=== PATIENT | female | born 1975 | race Two or more races ===

== ENCOUNTER 2025-04-29 18:15 | Inpatient (IN) | payer MEDICARE, SELFPAY ==
[2025-04-29 19:03] VITALS: BP 134/80; PULSE 98; TEMP 36.6; O2SAT 99
--- NOTE | 2025-04-29 19:18 | PC.NURSE ---
49 y/o female arrived to at 1845 on a CV from [facility] in [facility] for acute psychosis. Per N2N pt has dx schizophrenia and reportedly stopped taking her medications several months ago. Per report, pt was not attending to ADLs, remained in the same clothing for the past ten days, wandering the streets, exhibiting paranoia, and reportedly threw away much of her belongings. While in their ED pt became agitated and was physically, mechanically, and chemically restrained after smearing feces on the bathroom wall as well as on her sitter?s face. After receiving Ketamine 290mg IM and Haldol 5mg IM, pt required supplemental oxygen for a short period of time. Before transfer to [facility] pt was medicated with Valium 10mg PO and Haldol 10mg PO d/t increasing agitation. Per report pt has a dx of diabetes, however Metformin was last filled in 06/2024. Pt reportedly was prescribed Abilify, however stopped taking several months ago. Pt arrived to unit via?stretcher. Pt reported a strong need to urinate after the long commute. Pt was assisted to room with two nurses d/t pt feeling unsteady. Pt was polite but guarded. Limited participation with skin check, however pt did change into new hospital clothing. Bruising noted to bilateral arms. Yellow socks provided d/t pt feeling unsteady. Pt refused full skin check and covering provider Amelia Rodriguez NP notified. Pt cooperative with VS, however declined to get weighed. Provider then met with pt at beside and signed CV. Awaiting admit orders. Admission to be completed by oncoming RN.
[2025-04-29 20:00] VITALS: BP 126/82; PULSE 76; RESP 16; TEMP 36.6; O2SAT 98
[2025-04-29 20:04] VITALS: BMI 29.0
[2025-04-29 21:38] LABS: Glucose, Whole Blood 114 mg/dL (60-115)
--- NOTE | 2025-04-29 23:25 | P.HPPS_ITS ---
HPI Date of Service: 04/29/25 Chief Complaint: Schizophrenia Sources of Information: patient interviewed, chart reviewed and crisis/core team assessment reviewed HPI Subjective Notes: Clarke Warning and Conditional Voluntary Healthcare Proxy: No Guardianship: No Medical Problems Affecting Mental Status: No Narrative: Patient is a 49 years old female past medical history of significant of psychiatric behavioral disorder-schizophrenic him in 2 [facility] ED with her sister for evaluation. Sister came in from [place] to visit her, feeling patient is not safe for herself, reports has not taking medication over the past couple of months and has been having acute psychosis. Patient was wandering on the street, throwing her belongings away, not showering, not changing clothes for 10 days. She was given IM Haldol 5, diazepam 2 mg ketamine 290 mg at 05:30 for increased agitation, smears feces on the sitter's face. Met with patient at 18:50 in assigned room 515. CC I do not feel okay. Pain lower my belly. I do think I have to go to the ED . Patient has poor insight what reason brought her here. She does remember her sister coming to visit her from [place]. Remember she had history of schizophrenic, diabetes and thyroid disease. Reported that she has not needed to take medication after meeting with her doctor and doctor told her that she does not need to take more medications. She is not sure how long she stopped taking medication. Denies SI/SIB/HI/AVH. Denies suicidal history, denies suicide attempts history repeatedly saying I do not do it. I love my life . Feeling tired and okay and a little sad now, stated her mood is stable . Past Psychiatric History: History of 2 inpatient level of care admissions. Denies PHP or detox history. Reports she has psychiatrist and therapist. Reports that she saw the therapist in March, and saw the psychiatrist in December of this year Medical Evaluation Reviewed: Hospitalist Juan Pending [facility] Narrative: History of diabetes type 2. History of thyroid disease Narrative: No history of surgery Family History: She has 1 brother and 2 sisters. Denies family mental health or substance use issues Social History: She is single, no children, have her own apartment, able to return. He has a supportive family. She moved to [place] from [place] in 1992. Sh e stays in [place] is seen April of 2005-2011. Some college level. Received SSI Substance History: Denies Trauma History: Denies Diagnostics Vital Signs (24Hr): Vital Signs - 24 hr 04/29/25 19:03 04/29/25 20:00 Temperature 97.9 F 97.8 F Pulse Rate 98 76 Respiratory Rate 16 Blood Pressure 134/80 126/82 Pulse Oximetry 99 98 Oxygen Delivery Method Room Air Room Air BMI result Body Mass Index 29.0 Labs Labs: Laboratory Results - last 48 hr 04/29/25 21:33 POC Glucose 114 Meds/Allergies Meds Home Medications ?Medication ?Instructions ?Recorded ?Confirmed ?Type aripiprazole 5 mg tablet 5 mg PO BID 04/29/25 5 History dapagliflozin propanediol 10 mg 10 mg PO DAILY 5 04/29/25 History tablet (Farxiga) Allergies Allergies Allergy/AdvReac Type Severity Reaction Status Date / Time Penicillins Allergy Unknown Verified 04/29/25 18:57 Mental Status Exam Mental Status Exam Narrative: Patient is alert and oriented; behavior is cooperative, friendly with mild to mild to moderate anxiety; patient is not in distress; dressed in hospital attire with kempt hair and adequate hygiene; mood is described as stable and affect incongruent; eye contact appropriate; Speech is normal rate, volume and prosody and not pressured; no psychomotor agitation/retardation present; thought process is organized and goal directed; Thought content is WNL, pertinent to relevant topics and without any delusional content, paranoid ideation or grandiosity; denies any SI/SIB/HI. Denies AH and there is no evidence of perceptual disturbance. Patient's insight and judgment impaired/poor. Do not make any delusional as the paranoid statements, however reports that she feels someone got into her apartment as something look different in the apartment Assessment & Plan Assessment & Plan (1) Schizophrenic disorder: Status: Acute Code(s): F20.9 - Schizophrenia, unspecified (2) Thyroid disease: Status: Acute Code(s): E07.9 - Disorder of thyroid, unspecified (3) Diabetes: Status: Acute Code(s): E11.9 - Type 2 diabetes mellitus without complications Plan HPI: Patient is a 49 years old female past medical history of significant of psychiatric behavioral disorder-schizophrenic referred from [facility] ED. Sister came in from [place] to visit her, feeling patient is not safe for herself, reports has not taking medication over the past couple of months and has been having acute psychosis. Patient was wandering on the street, throwing her belongings away, not showering, not changing clothes for 10 days. She was given IM Haldol 5, diazepam 2 mg ketamine 290 mg at 05:30 for increased agitation, smears feces on the sitter's face CC I do not feel okay. Pain lower my belly. I do think I have to go to the ED . Patient has poor insight what reason brought her here. She does remember her sister coming to visit her from [place]. Remember she had history of schizophrenic, diabetes and thyroid disease. Reported that she has not needed to take medication after meeting with her doctor and doctor told her that she does not need to take more medications she told me I do not have mental health . She is not sure how long she stopped taking medication. Denies SI/SIB/HI/AVH. Denies suicidal history, denies suicide attempts history repeatedly saying I do not do it. I love my life . Feeling tired and okay and a little sad now, stated her mood is stable . Little to no insight of how she got into the hospital and why she needs to be in the hospital. Judgment and insight are impaired. Formulation/clinical reasoning: Stopped taking medication included her diabetes and thyroid medication, become psychotic, agitated, bizarre behavior. Given restrain medication in the ED, appeared to be calm on admission. Continued to be poor insight of her mental illnesses. History of diabetes, hypothyroidism, schizophrenic. Given the above information, patient will be benefit in restrictive environment for her own safety, therapeutic environment, provided groups for coping skills, medication management, and refer patient to outpatient psychiatric services for aftercare. Hospital course: 04/29/25: Restart on Abilify 10 mg daily in the morning. Levothyroxine 100 mg daily in the morning At Zyprexa 5 mg twice a day as needed for agitation/psychosis Hold on Faxiga: Not sure how her for sugar runs lately. Resume if needed. Other medication per protocol. order drugs screen: Not done in the ED. she was negative for Hcg Plan Patient on 15 minute checks for safety. Admitted to . CV. Work with treatment team to do collateral and follow-up appointments with psychiatry services for aftercare. Sister called when the patient just arrived to the unit. Treatment team to reach out to sister to update update her if possible Contact the hospitalist regarding hospitalist consultation on admission: Pending. Patient educated on: diagnosis, medication risk/benefits and therapeutic strategies Informed Consent: further education needed Reason for continued inpatient stay Substantial Risk for: med/psych decompensation Statement Statement: I have reviewed the history and physical and performed a pertinent examination on my patient. No changes have occurred unless specified. If the History and Physical was not performed prior to admission, the Hospitalist's service will be consulted for completing the admission physical. Time Spent With Patient Time: Total time managing care of this patient today ____ minutes.
--- NOTE | 2025-04-30 02:09 | PC.ADMIT ---
Patient is a 49 y/o female who arrived to at 1845 on a CV from [facility] in [facility] for acute psychosis. Per N2N pt has dx schizophrenia and reportedly stopped taking her medications several months ago. Per report, pt was not attending to ADLs, remained in the same clothing for the past ten days, wandering the streets, exhibiting paranoia, and reportedly threw away much of her belongings. While in their ED pt became agitated and was physically, mechanically, and chemically restrained after smearing feces on the bathroom wall as well as on her sitter?s face. She received Ketamine 290mg IM and Haldol 5mg IM, pt required supplemental oxygen for a short period of time. Before transfer to [facility] pt was medicated with Valium 10mg PO and Haldol 10mg PO d/t increasing agitation. Per report pt has a dx of diabetes, however Metformin was last filled in 06/2024. Pt reportedly was prescribed Abilify, however stopped taking several months ago. Pt arrived to unit via?stretcher. Pt reported a strong need to urinate after the long commute. Pt was assisted to room with two nurses d/t pt feeling unsteady. Pt was polite but guarded. Limited participation with skin check, however pt did change into new hospital clothing. Bruising noted to bilateral arms. Yellow socks provided d/t pt feeling unsteady. Pt refused full skin check and covering provider Amelia Rodriguez NP notified. Pt cooperative with VS. Provider then met with pt at beside and signed CV. Awaiting admit orders. Patient was oriented to the unit, placed on safety checks.
[2025-04-30 08:00] VITALS: BP 105/68; PULSE 57; TEMP 35.7; O2SAT 96
--- NOTE | 2025-04-30 08:19 | HO.PM.IMCN ---
History of Present Illness Data of Consult Service Date: 04/30/25 Primary Care Provider: DO YELITZA Jj Reason for consult: Medical management 49-year-old female with past medical history of hypothyroidism, diabetes, psychiatric behavior disorder brought into the [facility] in [place] emergency department with concerns for not taking her medications and active psychosis. On exam she is alert and pleasant she has no physical complaints. She reports she has not taken any medications for diabetes in a couple of years. She was also not taking her levothyroxine. Her A1c is 5.6, discussed diet and exercise with her as well as following up with her primary care. She denies any shortness of breath, chest pain, dizziness lightheadedness or any other concerning symptoms. She is resting in bed, quiet and cooperative. She reports that she feels better. Review of Systems Review of Systems: Denies any shortness of breath, chest pain, dizziness, lightheadedness, abdominal pain or discomfort, nausea vomiting or diarrhea PMFSH Social History Household Members: None Housing: Apartment Do you presently have visiting nurse or other home services: No Patient Tobacco Use Status: Never used Tobacco Smoked in Last 30 Days: No e-Cigarette/Vaping Use: Never Used Patient Interested in Nicotine Replacement: No Patient Given Instructions on How to Stop Smoking: No Second Hand Smoke Exposure: No Currently Displaying Signs/Symptoms of Drug Intoxication Withdrawal: No Have you been hit, kicked, punched, or otherwise hurt by someone within the past year? If so, by whom?: No Do you feel safe in your current relationship?: No Current Relationship Is there a partner from a previous relationship who is making you feel unsafe now?: No Are you made to feel afraid or neglected: No Yazidi Healthcare Practices: Patient is a Jehovah witness affiliation Advance Directives: No Advance Directives Information Provided: No Do you have thoughts of harming others: None Do you have a plan to hurt others: No Plan Recently lost weight without trying: No How much weight loss: Not applicable Eating poorly because of decreased appetite: No Nutrition screen score: 0 Nutrition Risks: No Nutritional Risk Patient : No : No Poor oral hygiene: No Meds Allergies Allergy/AdvReac Type Severity Reaction Status Date / Time Penicillins Allergy Unknown Verified 04/29/25 18:57 Active Medications: Current Medications Acetaminophen (Acetaminophen 325 Mg Tablet) 650 mg PO Q6H PRN PRN Reason: Headache/Pain, Scale 1-10 Al Hydroxide/Mg Hydroxide (Magnesium Hydrox/Alum Hydrox 30 Ml Oral.Susp) 30 ml PO Q6H PRN PRN Reason: Heartburn/Nausea Aripiprazole (Aripiprazole 10 Mg Tablet) 10 mg PO DAILY [facility] Haloperidol (Haloperidol 5 Mg Tablet) 5 mg PO Q4H PRN PRN Reason: agitation/psychosis Hydroxyzine HCl (Hydroxyzine Hcl 25 Mg Tablet) 25 mg PO Q6H PRN PRN Reason: mild anxiety Insulin Human Lispro (Insulin Lispro 100 Unit/Ml 3 Ml Vial) 0 unit SUBCUT QIDACHS [facility]; Protocol Last Admin: 04/29/25 21:44 Dose: Not Given Levothyroxine Sodium (Levothyroxine Sodium 100 Mcg Tablet) 100 mcg PO DAILY@0600 [facility] Last Admin: 04/30/25 06:34 Dose: Not Given Magnesium Hydroxide (Milk Of Magnesia 30 Ml Oral.Susp) 30 ml PO DAILY PRN PRN Reason: Constipation Trazodone HCl (Trazodone Hcl 50 Mg Tablet) 50 mg PO BEDTIME MRX1 PRN PRN Reason: Insomnia Home Medications ?Medication ?Instructions ?Recorded ?Confirmed ?Last Taken ?Type aripiprazole 5 mg tablet 5 mg PO BID 04/29/25 04/29/25 Unknown History dapagliflozin propanediol 10 mg 10 mg PO DAILY 04/29/25 04/29/25 Unknown History tablet (Farxiga) Physical Exam Vital Signs and Narrative: Vital Signs: Last Vital Signs Temp 97.8 F 04/29/25 20:00 Pulse 76 04/29/25 20:00 Resp 16 04/29/25 20:00 BP 126/82 04/29/25 20:00 Pulse Ox 98 04/29/25 20:00 O2 Del Method Room Air 04/29/25 20:00 BMI result Body Mass Index 29.0 Alert and oriented X4, able to give good history. Pleasant and cooperative Neuro: CN II-X11 intact, no deficits, visual acuity intact EYES: PERRLA, EOM intact ENT: Hearing intact, lips moist Cardiac: S1 S2 RRR, No ectopy Pulmonary: Lungs clear to auscultation, No increased WOB. Abdominal: BS active in all 4 quadrants, no guarding or tenderness MSK: Strength 5/5 upper and lower extremities : Deferred Extremities: No edema in lower extremities Psych: mood stable, Quiet and cooperative. Skin: Warm and dry, Intact Results Labs 04/30/25 08:12 Labs: Laboratory Results - last 24 hr 04/29/25 21:33 POC Glucose 114 Assessment and Plan (1) Hypothyroidism: Status: Acute Plan Schizophrenia with psychosis Treatment per psychiatric team Hypothyroidism Continue 100 mcg of levothyroxine TSH is noted to be 66.2. Suspect that patient has been not taking her medications We will continue 100 mcg of levothyroxine, recheck level in 3-3 weeks Will need outpatient follow up if patient is discharged prior to this timeframe. Type 2 diabetes Appears well controlled Discussed diet and exercise with patient. Thank you for allowing me to participate in the care of this patient. Signing off at this time. Please reconsult of any acute concerns or issues arise
[2025-04-30 09:01] LABS: Glucose, Whole Blood 84 mg/dL (60-115)
[2025-04-30 09:14] LABS: Hemoglobin A1C 125.3678 umol/L; Total Hemoglobin (HGBA1C) 3338.7650 umol/L
[2025-04-30 09:28] LABS: Alanine Aminotransferase 74 U/L (0-31); Albumin Level 4.5 g/dL (3.5-5.0); Alkaline Phosphatase 79 U/L (39-117); Anion Gap 13 (12-20); Aspartate Amino Transferase 56 U/L (5-31); Blood Urea Nitrogen 12 mg/dL (9-16); Calcium 9.1 mg/dL (8.4-10.2); Carbon Dioxide 30 mmol/L (22-29); Chloride 105 mmol/L (96-108); Cholesterol 220 mg/dL (<200); Creatinine Clr Calc Pharmacy 58.7; Estimated Glomerular Filt Rate 54; HDL Cholesterol 58 mg/dL (>40); Potassium 3.5 mmol/L (3.3-5.1); Sodium 144 mmol/L (135-145); Total Protein 7.4 g/dL (6.5-8.0); Triglycerides 92 mg/dL (<150)
[2025-04-30 09:45] LABS: Free T4 (Free Thyroxine) < 0.42 ng/dL (0.71-1.85); Thyroid Stimulating Hormone 68.22 uIU/mL (0.32-4.0)
--- NOTE | 2025-04-30 10:28 | P.PNPSI_ITS ---
Subjective Subjective Date of Service: 04/30/25 Reason For Visit: Schizophrenia Subjective Notes: Conditional Voluntary Healthcare Proxy: No Guardianship: No Medical Problems Affecting Mental Status: No Interim History: Met with pt and Connor GONZALEZ. Pt is pleasant, forthcoming, well engaged. She reports she was at her [place], called her friend from the confucianism to give her a ride. Two friends came, they stopped at [facility], got some supplies, went to friends home and I felt wierd . As a result she left her friends home, started walking, friends followed her-they told her she seemed off, not like the same person. She reports she thought something happened in [facility] that she did not recognize or understand, became more frightened and began to run from her friends. Police were called and pt went to [facility]. Pt denies SI,HI, AH,VH. She lives alone she reports, completed high school and to [place] she believes at age 10. She has SSI and does not work. She reports she meets with Virginie Holm for therapy and Liz Elizabeth for medications, reports pre-diabetes which she reports is resolved and hypothyroidism. She reports Abilify and Levothyroxine help. She reports in pt history, one or two days , denies family history of illness and has phobic sx of fire and rats.. She enjoys music, friends, going out to eat, going to the beach, nature, reading, walking. She is willing to continue her med regime and reports feeling safe on the unit. Medication Compliance: Intermittent (ref levothyroxine- tsh 68.22 and ft4 0.42) Side effects from medications: No Attending Groups: No Review of Systems Acute medical concerns: Yes TSH 68.22 Medical Review of Systems: unchanged Review of Systems Review of Systems Pt denies Mental Status Exam Mental Status Exam Patient Appearance: Appropriate Patient Orientation: Person, Place, Time and Situation Level of Consciousness: Alert Patient Behavior: Appropriate, Talkative, Cooperative, Distractible and Good Eye Contact Mood Description: Cheerful and Apprehensive Affect Description: Cheerful and Apprehensive Patient Cognition Impaired: No Ability to Follow Directions: Good Speech Pattern: Spontaneous Speech Memory Description: Remote Impaired Hallucinations: None (denies) Delusions: Paranoid Ideation Perceptual Disturbances: Depersonalization and Derealization Thought Process: Distracted Thought Content: positive for Circumstantial, positive for Tangential and positive for Suicidal Ideation (denies) Judgement: Fair Diagnostics Vital Signs (24Hr): Vital Signs - 24 hr 04/29/25 19:03 04/29/25 20:00 04/30/25 08:00 Temperature 97.9 F 97.8 F 96.3 F L Pulse Rate 98 76 57 Respiratory Rate 16 Blood Pressure 134/80 126/82 105/68 Pulse Oximetry 99 98 96 Oxygen Delivery Method Room Air Room Air Room Air BMI result Body Mass Index 29.0 Labs 04/30/25 08:12 Labs: Laboratory Results - last 48 hr 04/29/25 04/30/25 04/30/25 21:33 08:12 08:54 Sodium 144 Potassium 3.5 Chloride 105 Carbon Dioxide 30 H Anion Gap 13 BUN 12 Creatinine 1.09 Estim Creat Clear Calc 58.7 Estimated GFR 54 POC Glucose 114 84 Random Glucose 108 Estimat Average Glucose 114 Hemoglobin A1c % 5.6 Calcium 9.1 Total Bilirubin 1.0 AST 56 H ALT 74 H Alkaline Phosphatase 79 Total Protein 7.4 Albumin 4.5 Triglycerides 92 Cholesterol 220 H LDL Cholesterol, Calc 144 H HDL Cholesterol 58 TSH 68.22 H Free T4 < 0.42 L Medications Medications Current Medications Acetaminophen (Acetaminophen 325 Mg Tablet) 650 mg PO Q6H PRN PRN Reason: Headache/Pain, Scale 1-10 Al Hydroxide/Mg Hydroxide (Magnesium Hydrox/Alum Hydrox 30 Ml Oral.Susp) 30 ml PO Q6H PRN PRN Reason: Heartburn/Nausea Aripiprazole (Aripiprazole 10 Mg Tablet) 10 mg PO DAILY [facility] Last Admin: 04/30/25 10:02 Dose: 10 mg Haloperidol (Haloperidol 5 Mg Tablet) 5 mg PO Q4H PRN PRN Reason: agitation/psychosis Hydroxyzine HCl (Hydroxyzine Hcl 25 Mg Tablet) 25 mg PO Q6H PRN PRN Reason: mild anxiety Insulin Human Lispro (Insulin Lispro 100 Unit/Ml 3 Ml Vial) 0 unit SUBCUT QIDACHS [facility]; Protocol Last Admin: 04/30/25 08:59 Dose: Not Given Levothyroxine Sodium (Levothyroxine Sodium 100 Mcg Tablet) 100 mcg PO DAILY@0600 [facility] Last Admin: 04/30/25 06:34 Dose: Not Given Magnesium Hydroxide (Milk Of Magnesia 30 Ml Oral.Susp) 30 ml PO DAILY PRN PRN Reason: Constipation Trazodone HCl (Trazodone Hcl 50 Mg Tablet) 50 mg PO BEDTIME MRX1 PRN PRN Reason: Insomnia Allergies Allergies Allergy/AdvReac Type Severity Reaction Status Date / Time Penicillins Allergy Unknown Verified 04/29/25 18:57 Assessment & Plan Assessment & Plan (1) Schizophrenic disorder: Status: Acute Code(s): F20.9 - Schizophrenia, unspecified (2) Thyroid disease: Status: Acute Code(s): E07.9 - Disorder of thyroid, unspecified (3) Diabetes: Status: Acute Code(s): E11.9 - Type 2 diabetes mellitus without complications Plan Schizophrenia. 04/30- Continue current tx Collateral Contacts Probable need to increase Abilify once established. Hypothyroidism Continue 100 mcg of levothyroxine TSH is noted to be 66.2. Suspect that patient has been not taking her medications We will continue 100 mcg of levothyroxine, recheck level in 3-3 weeks Will need outpatient follow up if patient is discharged prior to this timeframne. Type 2 diabetes Appears well controlled on current regime, A1c 5.6 continue home meds Januvia and Farxiga. Reason for continued inpatient stay Substantial Risk for: rapid decompensation and med/psych decompensation Time Spent With Patient Time: Total time managing care of this patient today ____ minutes.
[2025-04-30 20:00] VITALS: BP 133/72; PULSE 60; TEMP 36.1; O2SAT 98
[2025-04-30 20:25] LABS: Glucose, Whole Blood 111 mg/dL (60-115)
[2025-05-01 08:00] VITALS: BP 123/76; PULSE 53; TEMP 36.3; O2SAT 97
--- NOTE | 2025-05-01 17:34 | P.PNPSI_ITS ---
Subjective Subjective Date of Service: 05/01/25 Reason For Visit: Schizophrenia Interim History: Patient was pleasant on approach. She reports she wasn't aware the Abilify dose ordered was 10 mg and says she would only take 5 mg. She reports she and her psychiatric provider were lowering the dose gradually and discontinued. She feels the Abilify helped stabilize her mood. She has not been exhibiting disorganized behavior at the hospital. Review of Systems Review of Systems Pt denies Mental Status Exam Mental Status Exam Narrative: Patient is alert and oriented; behavior is cooperative, friendly with mild to mild to moderate anxiety; patient is not in distress; dressed in hospital attire with kempt hair and adequate hygiene; mood is described as stable and affect incongruent; eye contact appropriate; Speech is normal rate, volume and prosody and not pressured; no psychomotor agitation/retardation present; thought process is organized and goal directed; Thought content is WNL, pertinent to relevant topics and without any delusional content, paranoid ideation or grandiosity; denies any SI/SIB/HI. Denies AH and there is no evidence of perceptual disturbance. Patient's insight and judgment impaired/poor. Do not make any delusional as the paranoid statements, however reports that she feels someone got into her apartment as something look different in the apartment Patient Appearance: Appropriate Patient Orientation: Person, Place, Time and Situation Level of Consciousness: Alert Patient Behavior: Appropriate, Talkative, Cooperative, Distractible and Good Eye Contact Mood Description: Cheerful and Apprehensive Affect Description: Cheerful and Apprehensive Patient Cognition Impaired: No Ability to Follow Directions: Good Speech Pattern: Spontaneous Speech Memory Description: Remote Impaired Diagnostics Vital Signs (24Hr): Vital Signs - 24 hr 04/30/25 20:00 05/01/25 08:00 Temperature 96.9 F 97.4 F Pulse Rate 60 53 Blood Pressure 133/72 123/76 Pulse Oximetry 98 97 Oxygen Delivery Method Room Air Room Air BMI result Body Mass Index 29.0 Labs 04/30/25 08:12 Labs: Laboratory Results - last 48 hr 04/29/25 04/30/25 04/30/25 21:33 08:12 08:54 Sodium 144 Potassium 3.5 Chloride 105 Carbon Dioxide 30 H Anion Gap 13 BUN 12 Creatinine 1.09 Estim Creat Clear Calc 58.7 Estimated GFR 54 POC Glucose 114 84 Random Glucose 108 Estimat Average Glucose 114 Hemoglobin A1c % 5.6 Calcium 9.1 Total Bilirubin 1.0 AST 56 H ALT 74 H Alkaline Phosphatase 79 Total Protein 7.4 Albumin 4.5 Triglycerides 92 Cholesterol 220 H LDL Cholesterol, Calc 144 H HDL Cholesterol 58 TSH 68.22 H Free T4 < 0.42 L 04/30/25 20:18 Sodium Potassium Chloride Carbon Dioxide Anion Gap BUN Creatinine Estim Creat Clear Calc Estimated GFR POC Glucose 111 Random Glucose Estimat Average Glucose Hemoglobin A1c % Calcium Total Bilirubin AST ALT Alkaline Phosphatase Total Protein Albumin Triglycerides Cholesterol LDL Cholesterol, Calc HDL Cholesterol TSH Free T4 Medications Medications Current Medications Acetaminophen (Acetaminophen 325 Mg Tablet) 650 mg PO Q6H PRN PRN Reason: Headache/Pain, Scale 1-10 Al Hydroxide/Mg Hydroxide (Magnesium Hydrox/Alum Hydrox 30 Ml Oral.Susp) 30 ml PO Q6H PRN PRN Reason: Heartburn/Nausea Aripiprazole (Aripiprazole 5 Mg Tablet) 5 mg PO DAILY [facility] Haloperidol (Haloperidol 5 Mg Tablet) 5 mg PO Q4H PRN PRN Reason: agitation/psychosis Hydroxyzine HCl (Hydroxyzine Hcl 25 Mg Tablet) 25 mg PO Q6H PRN PRN Reason: mild anxiety Insulin Human Lispro (Insulin Lispro 100 Unit/Ml 3 Ml Vial) 0 unit SUBCUT [facility]IDACHS [facility]; Protocol Last Admin: 05/01/25 16:33 Dose: Not Given Levothyroxine Sodium (Levothyroxine Sodium 100 Mcg Tablet) 100 mcg PO DAILY@0600 [facility] Last Admin: 05/01/25 06:57 Dose: 100 mcg Magnesium Hydroxide (Milk Of Magnesia 30 Ml Oral.Susp) 30 ml PO DAILY PRN PRN Reason: Constipation Trazodone HCl (Trazodone Hcl 50 Mg Tablet) 50 mg PO BEDTIME MRX1 PRN PRN Reason: Insomnia Allergies Allergies Allergy/AdvReac Type Severity Reaction Status Date / Time Penicillins Allergy Unknown Verified 04/29/25 18:57 Assessment & Plan Assessment & Plan (1) Schizophrenic disorder: Status: Acute Code(s): F20.9 - Schizophrenia, unspecified (2) Thyroid disease: Status: Acute Code(s): E07.9 - Disorder of thyroid, unspecified (3) Diabetes: Status: Acute Code(s): E11.9 - Type 2 diabetes mellitus without complications Plan Schizophrenia. 04/30- Continue current tx Collateral Contacts Probable need to increase Abilify once established. 05/01: Decrease Abilify to 5 mg. Hypothyroidism Continue 100 mcg of levothyroxine TSH is noted to be 66.2. Suspect that patient has been not taking her medications We will continue 100 mcg of levothyroxine, recheck level in 3-3 weeks Will need outpatient follow up if patient is discharged prior to this timeframne. Type 2 diabetes Appears well controlled on current regime, A1c 5.6 continue home meds Januvia and Farxiga. Reason for continued inpatient stay Substantial Risk for: inability to function and rapid decompensation Time Spent With Patient Time: Total time managing care of this patient today ____ minutes.
[2025-05-01 19:42] VITALS: BP 134/76; PULSE 62; TEMP 36.6; O2SAT 98
[2025-05-02 07:56] VITALS: BP 140/82; PULSE 58; TEMP 36.2; O2SAT 97
--- NOTE | 2025-05-02 09:22 | HO.PSYCHPN ---
Subjective Subjective Date of Service: 05/02/25 Reason For Visit: Schizophrenia Interim History: Patient was pleasant on approach. She reports I am feeling really good and is somewhat euphoric. She feels her mood is stable. She has not had any behavioral outbursts or dysregulation. Sleeping OK but woke up because she felt cold. Took Abilify 5 mg. She feels the Abilify helped stabilize her mood. Denies SI. Denies AVH. Review of Systems Review of Systems Pt denies Mental Status Exam Mental Status Exam Narrative: Patient is alert and oriented; behavior is cooperative, friendly with mild to mild to moderate anxiety; patient is not in distress; dressed in hospital attire with kempt hair and adequate hygiene; mood is described as stable and affect incongruent; eye contact appropriate; Speech is normal rate, volume and prosody and not pressured; no psychomotor agitation/retardation present; thought process is organized and goal directed; Thought content is WNL, pertinent to relevant topics and without any delusional content, paranoid ideation or grandiosity; denies any SI/SIB/HI. Denies AH and there is no evidence of perceptual disturbance. Patient's insight and judgment impaired/poor. Do not make any delusional as the paranoid statements, however reports that she feels someone got into her apartment as something look different in the apartment Patient Appearance: Appropriate Patient Orientation: Person, Place, Time and Situation Level of Consciousness: Alert Patient Behavior: Appropriate, Talkative, Cooperative, Distractible and Good Eye Contact Mood Description: Cheerful and Apprehensive Affect Description: Cheerful and Apprehensive Patient Cognition Impaired: No Ability to Follow Directions: Good Speech Pattern: Spontaneous Speech Memory Description: Remote Impaired Diagnostics Vital Signs (24Hr): Vital Signs - 24 hr 05/01/25 19:42 05/02/25 07:56 Temperature 97.8 F 97.1 F Pulse Rate 62 58 Blood Pressure 134/76 140/82 H Pulse Oximetry 98 97 Oxygen Delivery Method Room Air Room Air BMI result Body Mass Index 29.0 Labs 04/30/25 08:12 Labs: Laboratory Results - last 48 hr 04/30/25 04/30/25 08:12 20:18 Sodium 144 Potassium 3.5 Chloride 105 Carbon Dioxide 30 H Anion Gap 13 BUN 12 Creatinine 1.09 Estim Creat Clear Calc 58.7 Estimated GFR 54 POC Glucose 111 Random Glucose 108 Calcium 9.1 Total Bilirubin 1.0 AST 56 H ALT 74 H Alkaline Phosphatase 79 Total Protein 7.4 Albumin 4.5 Triglycerides 92 Cholesterol 220 H LDL Cholesterol, Calc 144 H HDL Cholesterol 58 TSH 68.22 H Free T4 < 0.42 L Medications Medications Current Medications Acetaminophen (Acetaminophen 325 Mg Tablet) 650 mg PO Q6H PRN PRN Reason: Headache/Pain, Scale 1-10 Al Hydroxide/Mg Hydroxide (Magnesium Hydrox/Alum Hydrox 30 Ml Oral.Susp) 30 ml PO Q6H PRN PRN Reason: Heartburn/Nausea Aripiprazole (Aripiprazole 5 Mg Tablet) 5 mg PO DAILY [facility] Last Admin: 05/02/25 08:52 Dose: 5 mg Haloperidol (Haloperidol 5 Mg Tablet) 5 mg PO Q4H PRN PRN Reason: agitation/psychosis Hydroxyzine HCl (Hydroxyzine Hcl 25 Mg Tablet) 25 mg PO Q6H PRN PRN Reason: mild anxiety Insulin Human Lispro (Insulin Lispro 100 Unit/Ml 3 Ml Vial) 0 unit [facility]; Protocol Last Admin: 05/02/25 07:57 Dose: Not Given Levothyroxine Sodium (Levothyroxine Sodium 100 Mcg Tablet) 100 mcg PO DAILY@0600 [facility] Last Admin: 05/02/25 06:44 Dose: 100 mcg Magnesium Hydroxide (Milk Of Magnesia 30 Ml Oral.Susp) 30 ml PO DAILY PRN PRN Reason: Constipation Trazodone HCl (Trazodone Hcl 50 Mg Tablet) 50 mg PO BEDTIME MRX1 PRN PRN Reason: Insomnia Allergies Allergies Allergy/AdvReac Type Severity Reaction Status Date / Time Penicillins Allergy Unknown Verified 04/29/25 18:57 Assessment & Plan Assessment & Plan (1) Schizophrenic disorder: Status: Acute Code(s): F20.9 - Schizophrenia, unspecified (2) Thyroid disease: Status: Acute Code(s): E07.9 - Disorder of thyroid, unspecified (3) Diabetes: Status: Acute Code(s): E11.9 - Type 2 diabetes mellitus without complications Plan Schizophrenia. 04/30- Continue current tx Collateral Contacts Probable need to increase Abilify once established. 05/01: Decrease Abilify to 5 mg. 05/02: continue current management and treatment plan. Hypothyroidism Continue 100 mcg of levothyroxine TSH is noted to be 66.2. Suspect that patient has been not taking her medications We will continue 100 mcg of levothyroxine, recheck level in 3-3 weeks Will need outpatient follow up if patient is discharged prior to this timeframne. Type 2 diabetes Appears well controlled on current regime, A1c 5.6 continue home meds Januvia and Farxiga. Reason for continued inpatient stay Substantial Risk for: inability to function and rapid decompensation Time Spent With Patient Time: Total time managing care of this patient today ____ minutes.
[2025-05-02 19:44] VITALS: BP 150/86; PULSE 68; RESP 15; TEMP 36.8; O2SAT 99
[2025-05-03 08:03] VITALS: BP 144/85; PULSE 55; TEMP 36.2; O2SAT 97
--- NOTE | 2025-05-03 10:10 | P.PNPSI_ITS ---
Subjective Subjective Date of Service: 05/03/25 Reason For Visit: Schizophrenia Subjective Notes: Conditional Voluntary and 3 Day Healthcare Proxy: No Guardianship: No Medical Problems Affecting Mental Status: No Interim History: Met with pt and Connor GONZALEZ. Pt denies SI,HI,AH, VH. She reports feeling well, tolerating re-starting her medication regime. TDN to 05/05. Blood sugars have been stable so POC and SS Insulin were discontinued at pt request. Pt reports her sister visited on Saturday, however, needed to return to her home and work in [place]. Pt discussed returning to her home in [place]. Willing to take medications and return to her provider group. Discussed discharge for 05/04 and she was pleased with this plan. She reports attending groups, identifying stress management techniques as being most helpful. Discussed decrease in Abilify over the weekend to preadmit dosage. Pt reports higher doses have not helped by history. Medication Compliance: Yes Side effects from medications: No Attending Groups: Intermittent Review of Systems Acute medical concerns: No Medical Review of Systems: unchanged Review of Systems Review of Systems Denies Mental Status Exam Mental Status Exam Patient Appearance: Appropriate Patient Orientation: Person, Place, Time and Situation Level of Consciousness: Alert Patient Behavior: Appropriate, Talkative, Cooperative and Good Eye Contact Mood Description: Cheerful Affect Description: Appropriate Patient Cognition Impaired: No Ability to Follow Directions: Good Speech Pattern: Spontaneous Speech and Coherent Memory Description: Episodic Impaired Hallucinations: None Delusions: Not Present Thought Process: Intact and Goal Oriented Thought Content: positive for Intact, positive for Goal Oriented and positive for Suicidal Ideation (denies) Depressive Symptoms: Thoughts of /Suicide (denies) Judgement: Good Diagnostics Vital Signs (24Hr): Vital Signs - 24 hr 05/02/25 19:44 05/03/25 08:03 Temperature 98.2 F 97.1 F Pulse Rate 68 55 Respiratory Rate 15 Blood Pressure 150/86 H 144/85 H Pulse Oximetry 99 97 Oxygen Delivery Method Room Air BMI result Body Mass Index 29.0 Labs 04/30/25 08:12 Medications Medications Current Medications Acetaminophen (Acetaminophen 325 Mg Tablet) 650 mg PO Q6H PRN PRN Reason: Headache/Pain, Scale 1-10 Al Hydroxide/Mg Hydroxide (Magnesium Hydrox/Alum Hydrox 30 Ml Oral.Susp) 30 ml PO Q6H PRN PRN Reason: Heartburn/Nausea Aripiprazole (Aripiprazole 5 Mg Tablet) 5 mg PO DAILY [facility] Last Admin: 05/03/25 08:37 Dose: 5 mg Haloperidol (Haloperidol 5 Mg Tablet) 5 mg PO Q4H PRN PRN Reason: agitation/psychosis Hydroxyzine HCl (Hydroxyzine Hcl 25 Mg Tablet) 25 mg PO Q6H PRN PRN Reason: mild anxiety Levothyroxine Sodium (Levothyroxine Sodium 100 Mcg Tablet) 100 mcg PO DAILY@0600 [facility] Last Admin: 05/03/25 06:35 Dose: 100 mcg Magnesium Hydroxide (Milk Of Magnesia 30 Ml Oral.Susp) 30 ml PO DAILY PRN PRN Reason: Constipation Trazodone HCl (Trazodone Hcl 50 Mg Tablet) 50 mg PO BEDTIME MRX1 PRN PRN Reason: Insomnia Allergies Allergies Allergy/AdvReac Type Severity Reaction Status Date / Time Penicillins Allergy Unknown Verified 04/29/25 18:57 Assessment & Plan Assessment & Plan (1) Schizophrenic disorder: Status: Acute Code(s): F20.9 - Schizophrenia, unspecified (2) Thyroid disease: Status: Acute Code(s): E07.9 - Disorder of thyroid, unspecified (3) Diabetes: Status: Acute Code(s): E11.9 - Type 2 diabetes mellitus without complications Plan Schizophrenia. 04/30- Continue current tx Collateral Contacts Probable need to increase Abilify once established. 05/01: Decrease Abilify to 5 mg. 05/02: continue current management and treatment plan. 05/03: Repeat TSH, FT4 on 05/04 DC on 05/04 to home Hypothyroidism Continue 100 mcg of levothyroxine TSH is noted to be 66.2. Suspect that patient has been not taking her medications We will continue 100 mcg of levothyroxine, recheck level in 3-3 weeks Will need outpatient follow up if patient is discharged prior to this timeframne. Type 2 diabetes Appears well controlled on current regime, A1c 5.6 continue home meds Januvia and Farxiga. Reason for continued inpatient stay Substantial Risk for: stable for discharge Time Spent With Patient Time: Total time managing care of this patient today ____ minutes.
[2025-05-03 20:00] VITALS: BP 152/86; PULSE 64; TEMP 36.1; O2SAT 99
[2025-05-04 08:00] VITALS: BP 114/79; PULSE 62; RESP 16; TEMP 36.1; O2SAT 96
--- NOTE | 2025-05-04 11:13 | PM.PSYDC ---
DS: Providers Provider Date of admission: 04/29/25 18:15 Primary care physician: Lizandro Rodriguez DO Consults: 04/29/25 19:17 Consult to Hospitalist Routine Comment: Consulting Provider: [facility] [place] [facility] Reason For Exam: New external admit- H&P DS: Diagnosis Discharge Diagnosis (1) Schizophrenic disorder: Status: Acute (2) Thyroid disease: Status: Acute (3) Diabetes: Status: Acute DS: Medications Discharge Medications Home Medications: Previous Rx's ?Medication ?Instructions ?Recorded aripiprazole 5 mg tablet (Abilify) 5 mg PO DAILY #30 tabs 05/03/25 levothyroxine 100 mcg tablet 100 mcg PO DAILY@0600 #30 tabs 05/03/25 (Synthroid) Data Data Completed and Pending Completed studies during hospitalization [Text1]: 04/29/25 04/30/25 04/30/25 21:33 08:12 08:54 Sodium 144 Potassium 3.5 Chloride 105 Carbon Dioxide 30 H Anion Gap 13 BUN 12 Creatinine 1.09 Estim Creat Clear Calc 58.7 Estimated GFR 54 POC Glucose 114 84 Random Glucose 108 Estimat Average Glucose 114 Hemoglobin A1c % 5.6 Calcium 9.1 Total Bilirubin 1.0 AST 56 H ALT 74 H Alkaline Phosphatase 79 Total Protein 7.4 Albumin 4.5 Triglycerides 92 Cholesterol 220 H LDL Cholesterol, Calc 144 H HDL Cholesterol 58 TSH 68.22 H Free T4 < 0.42 L 04/30/25 20:18 Sodium Potassium Chloride Carbon Dioxide Anion Gap BUN Creatinine Estim Creat Clear Calc Estimated GFR POC Glucose 111 Random Glucose Estimat Average Glucose Hemoglobin A1c % Calcium Total Bilirubin AST ALT Alkaline Phosphatase Total Protein Albumin Triglycerides Cholesterol LDL Cholesterol, Calc HDL Cholesterol TSH Free T4 DS: Summary Time Spent with Patient Time attestation: Total time managing care of this patient today ____ minutes. Discharge Plan Discharge Anticipated Discharge Date/Time: 05/04/25 12:00 Patient Disposition: Home, Self-Care Discharge Diagnosis: Schizoaffective Disorder Hypothyroidism Referrals: Lizandro Rodriguez DO [Primary Care Provider, Internal Medicine] - 1 Week Discharge Medications: New levothyroxine [Synthroid] 100 mcg Tablet 100 mcg PO DAILY@0600 Qty: 30 0RF aripiprazole [Abilify] 5 mg Tablet 5 mg PO DAILY Qty: 30 0RF Discontinued aripiprazole 5 mg tablet 5 mg PO BID dapagliflozin propanediol [Farxiga] 10 mg tablet 10 mg PO DAILY Discharge Orders: Discharge Order (Routine); Ordered 05/04/25 Ordered By: Liana Marmolejo Diet: Advance to usual diet Activity on Discharge: As tolerated Stand Alone Forms: Patient Portal Discharge page Print Language: Greenlandic Care Plan Goals: Mood and Behavioral Stabilization Health Concerns: Mood and Behavioral Stabilization Plan of Treatment: Attend scheduled appointments Take medications as directed Call/Return as needed Assessment: Denies SI, HI, AH, VH. No sx of acute lianna or psychosis Pt discharges on a three day notice of intent.
== END 2025-05-04 12:40 | disposition home or self-care (01) | DRG 885 ==
PROVIDERS: Nurse Practitioner Psychiatric/Mental Health; Admitting Provider Psychiatry & Neurology Psychiatry; PCP Internal Medicine; Visit Provider Psychiatry & Neurology Psychiatry
DX: F20.9 Schizophrenia, unspecified (principal); E03.9 Hypothyroidism, unspecified; E11.9 Type 2 diabetes mellitus without complications; Z79.890 Hormone replacement therapy; Z79.899 Other long term (current) drug therapy
CPT/HCPCS: 36415; 80053; 80061; 82947; 83036; 84439; 84443

== ENCOUNTER → 2025-04-29 18:15 | Outpatient (BNV) | payer MEDICARE, SELFPAY | PROVIDERS: Admitting Provider Psychiatry & Neurology Psychiatry; PCP Internal Medicine; Visit Provider Clinical Nurse Specialist Psychiatric/Mental Health, Adult | DX: F20.9 Schizophrenia, unspecified (principal); E07.9 Disorder of thyroid, unspecified; E11.9 Type 2 diabetes mellitus without complications | CPT/HCPCS: 90792; 99231; 99232 ==

== ENCOUNTER → 2025-04-29 18:15 | Outpatient (BNV) | payer MEDICARE, SELFPAY | PROVIDERS: Admitting Provider Psychiatry & Neurology Psychiatry; PCP Internal Medicine; Visit Provider Nurse Practitioner Family | DX: E03.9 Hypothyroidism, unspecified (principal) | CPT/HCPCS: 99221 ==